=== PATIENT | male | born 1985 | race Caucasian/White ===

== ENCOUNTER 2022-01-02 16:38 | Outpatient (CLI) | payer OTHER, SELFPAY ==
--- NOTE | ~2022-01-02 | XR_ITS ---
XR chest 2V 01/02/2022 16:48 Indication: Asthma. Procedure: 2 view chest Comparison: 02/15/2016 Findings: There are lingular infiltrates which may represent atelectasis or developing pneumonia. Hea rt size normal. Right lung clear. No pleural effusion or pneumothorax. No edema. Impression: 1: Lingular infiltrates may represent atelectasis or developing pneumonia. Reviewed, dictated and finalized at location A. [employer] Impression: 1: Lingular infiltrates may represent atelectasis or developing pneumonia.
== END 2022-01-02 16:39 ==
PROVIDERS: Visit Provider Nurse Practitioner Family
DX: J45.909 Unspecified asthma, uncomplicated (principal); R91.8 Other nonspecific abnormal finding of lung field
CPT/HCPCS: 71046

== ENCOUNTER 2025-03-15 16:38 | Outpatient (CLI) | payer OTHER, SELFPAY ==
--- NOTE | ~2025-03-15 | XR_ITS ---
EXAMINATION: XR chest 2V 03/15/2025 16:43 INDICATION: Asthma. PROCEDURE: 2 view chest COMPARISON: No prior studies for comparison. FINDINGS: The lungs are clear. The cardiomediastinal silhouette is within normal limits. There are no pleural effusions. There is no pneumothorax suspected. IMPRESSION: 1: NO ACUTE CARDIOPULMONARY DISEASE. Reviewed, dictated and finalized at location A.
== END 2025-03-15 16:39 | disposition home or self-care (01) ==
LOC: MICIMG 16:38
PROVIDERS: PCP Family Medicine; Visit Provider Nurse Practitioner Adult Health
DX: J45.41 Moderate persistent asthma with (acute) exacerbation (principal); J40 Bronchitis, not specified as acute or chronic
CPT/HCPCS: 71046